=== PATIENT | male | born 1995 | race African-American/Black ===

== ENCOUNTER 2022-08-20 00:28 | Emergency (ER) | payer MEDICAID ==
[~2022-08-20] VITALS: Ht 172.7 cm; Wt 80.9 kg
[~2022-08-20 00:28] MED LIST: BO1 TP; CIPR2.5D13 RIGHTEYE; HYDR-4346 MT
[2022-08-20] MEDS ORDERED: IBUPROFEN 400MG TABLET PO ONE (02:30)
[2022-08-20 02:41] VITALS: BP 132/77
[2022-08-20] MEDS ORDERED: LIDOCAINE HCL/PF 1% 10 MG/ML 5ML VIAL INFIL ONE (03:15)
[2022-08-20] MEDS ORDERED: BACITRACIN ZINC OINT UDPKT TOP ONE (03:15)
[2022-08-20] MEDS ORDERED: TOPUD MT (03:45)
[2022-08-20] MEDS ORDERED: CEPH500C2 MT (03:45)
[2022-08-20] MEDS ORDERED: TETANUS, DIPHTHERIA, PERTUSSIS VAC/PF 0.5ML (>10YR OLD) IM ONE (04:00)
== END 2022-08-20 04:10 | disposition home or self-care (01) ==
LOC: ER 00:28
DX: S61.215A Laceration without foreign body of left ring finger without damage to nail, initial encounter (principal); X58.XXXA Exposure to other specified factors, initial encounter; Y93.89 Activity, other specified; Y92.89 Other specified places as the place of occurrence of the external cause; Y99.8 Other external cause status
CPT/HCPCS: 12001; 73140; 99283; Z7610